=== PATIENT | male | born 1975 | race Caucasian/White ===

== ENCOUNTER 2020-02-02 09:49 | Emergency (ER) | payer OTHER ==
[2020-02-02] MEDS ORDERED: Sodium Chloride 0.9% 10 ML Syringe FLUSH PRN (10:12)
[2020-02-02] MEDS ORDERED: Ondansetron 4 MG/2 ML SDV IVPUSH ONE (10:12)
[2020-02-02] MEDS ORDERED: HYDROmorphone 0.5 MG/0.5 ML Syringe IVPUSH ONE ×3 (10:12→11:45)
--- NOTE | 2020-02-02 10:13 | EDM.PDOC ---
ED HPI GENERAL MEDICAL PROBLEM - General Chief Complaint: Laceration Stated Complaint: LEFT PALM LACERATION Time Seen by Provider: 02/02/20 10:15 Source of Information: Reports: Patient, RN Notes Reviewed - History of Present Illness INITIAL COMMENTS - FREE TEXT/NARRATIVE: 44-year-old male suffered laceration injury to left hand not too long ago. He was working with a piece of equipment at a [employer] shop in [place], some how his hand got "crushed" in the mechanics of the machine with resultant laceration to palmar aspect left hand. He states there was a lot of bleeding that has been controlled with pressure. Has had tetanus immunization within the past year. No apparent numbness, tingling or focal weakness of distal fingers. Left Hand Pain Score (Numeric/FACES): 10 - Related Data Allergies Allergy/AdvReac Type Severity Reaction Status Date / Time bee venom protein (honey bee) Allergy Swelling Verified 02/02/20 10:01 Home Meds: Home Meds Acetaminophen/HYDROcodone [[place] 325-5 MG] 1 tab PO Q6H PRN #14 tablet 02/02/20 [Rx] Cephalexin [Keflex] 500 mg PO QID #20 capsule 02/02/20 [Rx] Past Medical History - Past Health History Medical/Surgical History: Denies Medical/Surgical History Social & Family History - Tobacco Use Smoking Status *Q: Never Smoker - Caffeine Use Caffeine Use: Reports: Coffee - Recreational Drug Use Recreational Drug Use: No ED ROS GENERAL - Review of Systems Review Of Systems: See Below Constitutional: Reports: No Symptoms HEENT: Reports: No Symptoms Respiratory: Reports: No Symptoms Cardiovascular: Reports: No Symptoms GI/Abdominal: Reports: No Symptoms Musculoskeletal: Reports: Other (Large deep laceration palmar aspect left hand) Neurological: Denies: Numbness, Tingling, Weakness ED EXAM, SKIN/RASH Exam: See Below General Appearance: Alert, Anxious, Moderate Distress Head: Atraumatic Neck: Supple Respiratory/Chest: No Respiratory Distress Extremities: Normal Range of Motion (Patient is holding fingers somewhat in flexion because that is his most comfortable position. Can extend and he can flex all fingers), Other (Centimeter laceration mid palmar aspect of left hand on the ulnar side, moderately deep, no foreign material visible, no deep tendon structures visible) Neurological: No Motor/Sensory Deficits (There is no focal weakness of any of the fingers and distal sensation to touch is intact all fingers) ED SKIN PROCEDURES - Laceration/Wound Repair Left Hand Appearance: Linear, Irregular, Other (Oertli deep, no foreign material seen) Distal NVT: Neuro & Vascular Intact Anesthetic Type: Local Local Anesthesia - Lidocaine (Xylocaine): 1% Plain Exploration/Debridement/Repair: Wound Explored, Minimal Debridement Lac/Wound length In cm: 6 Suture Size: 3-0 # of Sutures: 16 Suture Type: Nylon Course - Vital Signs Last Recorded V/S: Last Vital Signs Temp 97.3 F 02/02/20 09:57 Pulse 69 02/02/20 09:57 Resp 16 02/02/20 09:57 BP 158/100 H 02/02/20 09:57 Pulse Ox 96 02/02/20 09:57 - Orders/Labs/Meds Orders: Active Orders 24 hr Category Date Time Status Peripheral IV Care [RC] . DIRECTED Care 02/02/20 10:13 Active Peripheral IV Insertion Adult [OM.PC] Stat Oth 02/02/20 10:12 Ordered Meds: Medications Discontinued Medications Generic Name Dose Route Start Last Admin Trade Name Freq PRN Reason Stop Dose Admin Hydromorphone HCl 0.5 mg 02/02/20 10:12 02/02/20 10:22 Dilaudid IVPUSH 02/02/20 10:13 0.5 mg ONETIME ONE Administration Hydromorphone HCl 0.5 mg 02/02/20 11:16 02/02/20 11:22 Dilaudid IVPUSH 02/02/20 11:17 0.5 mg ONETIME ONE Administration Hydromorphone HCl 0.5 mg 02/02/20 11:45 02/02/20 11:50 Dilaudid IVPUSH 02/02/20 11:46 0.5 mg ONETIME ONE Administration Cefazolin Sodium/Dextrose 2 gm 50 mls @ 100 mls/hr 02/02/20 11:55 02/02/20 12 :01 / Premix IV 02/02/20 12:24 100 mls/hr ONETIME ONE Administration Lidocaine HCl 50 ml 02/02/20 11:16 02/02/20 11:22 Xylocaine 1% INJECT 02/02/20 11:17 50 ml ONETIME ONE Administration Lorazepam 0.5 mg 02/02/20 11:45 02/02/20 11:50 Ativan IVPUSH 02/02/20 11:46 0.5 mg ONETIME ONE Administration Ondansetron HCl 4 mg 02/02/20 10:12 02/02/20 10:22 Zofran IVPUSH 02/02/20 10:13 4 mg ONETIME ONE Administration Sodium Chloride 10 ml 02/02/20 10:12 02/02/20 10:29 Saline Flush FLUSH 10 ml ASDIRECTED PRN Administration Keep Vein Open - Re-Assessments/Exams Free Text/Narrative Re-Assessment/Exam: 02/02/20 14:05 X-rays of hand, no acute fracture he was given Ancef 2 g IV while here in the ED , he was also given Dilaudid and Ativan IV. Patient tolerated procedure relatively well. Discharge instr. as documented. Departure - Departure Time of Disposition: 12:30 Disposition: Home, Self-Care 01 Condition: Fair Clinical Impression: Laceration of hand Qualifiers: Encounter type: initial encounter Foreign body presence: without foreign body Laterality: left Qualified Code(s): S61.412A - Laceration without foreign body of left hand, initial encounter - Discharge Information Prescriptions: Acetaminophen/HYDROcodone [[place] 325-5 MG] 1 tab PO Q6H PRN #14 tablet PRN Reason: Pain Cephalexin [Keflex] 500 mg PO QID #20 capsule Instructions: Laceration Care, Adult Referrals: PCP,None [Primary Care Provider] - Forms: ED Department Discharge, ED Return to Work/School Form Additional Instructions: laceration care instructions. Leave protective dressing on hand until your medical recheck on . Keep dressing dry and clean. Elevate hand as much as possible. I will every 6 to 8 hours for mild to moderate pain or hydrocodone if needed for more severe rohith codon at the same time. Do not drive when taking hydrocodone. Cephalexin antibiotic 500 mg 4 times daily. Have this rechecked at our [facility] medical clinic 2 days from now. Call [phone] for appointment. If for some reason unable to be seen at our [facility] medical clinic return to our ED for recheck. Sepsis Event Note - Evaluation Sepsis Screening Result: No Definite Risk - Focused Exam Vital Signs: Vital Signs Temp Pulse Resp BP Pulse Ox 02/02/20 09:57 97.3 F 69 16 158/100 H 96 Date Exam was Performed: 02/02/20 Time Exam was Performed: 13:58 - My Orders Last 24 Hours: My Active Orders 02/02/20 10:12 Peripheral IV Insertion Adult [OM.PC] Stat 02/02/20 10:13 Peripheral IV Care [RC] . DIRECTED - Assessment/Plan Last 24 Hours: My Active Orders 02/02/20 10:12 Peripheral IV Insertion Adult [OM.PC] Stat 02/02/20 10:13 Peripheral IV Care [RC] . DIRECTED
--- NOTE | 2020-02-02 10:43 | CR ---
Left hand: 4 views of the left hand were obtained. Comparison: No previous hand study. Study slightly limited due to finger flexion. Joint spaces are preserved. 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 No acute fracture or other acute abnormality is appreciated. Impression: 1. Findings as noted above. 2. No definite acute bony abnormality is appreciated on this somewhat limited study. Diagnostic code #2 This report was dictated in MDT
[2020-02-02] MEDS ORDERED: Lidocaine 1% 50 ML MDV INJECT ONE (11:16)
[2020-02-02] MEDS ORDERED: LORazepam 2 MG/ML SDV IVPUSH ONE (11:45)
[2020-02-02] MEDS ORDERED: ceFAZolin 2 GM in Premix Bag 1 BAG IV ONE (11:55)
== END 2020-02-02 12:40 | disposition home or self-care (01) ==
LOC: JD.ED 09:49
DX: S61.412A Laceration without foreign body of left hand, initial encounter (principal); Z91.030 Bee allergy status; W23.0XXA Caught, crushed, jammed, or pinched between moving objects, initial encounter; Y99.0 Civilian activity done for income or pay
CPT/HCPCS: 12002; 73130; 96365; 96375; 96376; 99283; J0690; J1170; J2001; J2060; J2405

== ENCOUNTER 2020-02-10 10:16 | Emergency (ER) | payer OTHER ==
--- NOTE | 2020-02-10 10:29 | EDM.PDOC ---
ED HPI GENERAL MEDICAL PROBLEM - General Chief Complaint: Upper Extremity Injury/Pain Stated Complaint: NUMBNESS IN LEFT HAND POST INJURY Time Seen by Provider: 02/10/20 10:29 - History of Present Illness INITIAL COMMENTS - FREE TEXT/NARRATIVE: 44-year-old male presents the emergency room with numbness in his left hand. Patient was seen here last week with a laceration over the distal palmar crease of his left hand following a crush type injury that he did at work. Since that time the patient has developed generalized numbness in his fingers especially the pinky ring and to a lesser degree the middle finger. This seems to involve both the dorsum and flexor surfaces of the fingers. The patient has been back to work and has been doing quite a bit of work with his hand. At night he has a hard time keeping the hand in a comfortable position. Patient is using ibuprofen for pain and discomfort and this does help some Left Hand Pain Score (Numeric/FACES): 9 - Related Data Allergies Allergy/AdvReac Type Severity Reaction Status Date / Time bee venom protein (honey bee) Allergy Swelling Verified 02/10/20 10:34 Home Meds: Home Meds Acetaminophen/HYDROcodone [[place] 325-5 MG] 1 tab PO Q6H PRN #14 tablet 02/02/20 [Rx] Cephalexin [Keflex] 500 mg PO QID #20 capsule 02/02/20 [Rx] Past Medical History - Past Health History Medical/Surgical History: Denies Medical/Surgical History Social & Family History - Caffeine Use Caffeine Use: Reports: Coffee Review of Systems - Review of Systems Review Of Systems: See Below Constitutional: Reports: No Symptoms Respiratory: Reports: No Symptoms Cardiovascular: Reports: No Symptoms GI/Abdominal: Reports: No Symptoms ED EXAM, GENERAL - Physical Exam Exam: See Below Exam Limited By: No Limitations General Appearance: Alert, No Apparent Distress Respiratory/Chest: No Respiratory Distress, Lungs Clear, Normal Breath Sounds Cardiovascular: Regular Rate, Rhythm, No Edema, No Murmur Extremities: Other (Patient is left hand shows intact vascular status good capillary refill. He has circumferential numbness involving the pinky ring and to a lesser degree the middle finger. 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 Vascularly he is intact. I have some concerns from reviewing his initial note immediately after the injury neurovascularly he was intact he had limited tendon function he could flex and extend his digits but this cannot be done fully thought to be secondary to the injury. At this time I cannot get him to fully extend in part due to the swelling he has and he cannot fully flex. I have informed the patient in absolutely no uncertain terms that this needs to be followed very closely until he has normal function established. Also he is at work and his employer is pushing him to do more with his left hand that he should be doing at this point with the swelling and there he needs to be doing limited duty with this hand. This will be included in his discharge instructions I believe in his best interest he should follow-up with the L&I doctor early next week. He is using ibuprofen he is advised to continue with this as well. Departure - Departure Time of Disposition: 11:32 Disposition: Home, Self-Care Clinical Impression: Crushing injury of left hand Laceration of hand Qualifiers: Encounter type: initial encounter Foreign body presence: without foreign body Laterality: left Qualified Code(s): S61.412A - Laceration without foreign body of left hand, initial encounter - Discharge Information Instructions: Laceration Care, Adult Referrals: PCP,None [Primary Care Provider] - Forms: ED Department Discharge, ED Return to Work/School Form Additional Instructions: Return to the emergency room with any questions problems or worsening symptoms. Keep your hand elevated as much as you can. I cannot emphasize this enough. 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 Watch for return of nerve function. Also your flexion and extension, the ability to move your fingers fully needs to be monitored until full function is established. Sepsis Event Note - Focused Exam Vital Signs: Vital Signs Temp Pulse Resp BP Pulse Ox 02/10/20 10:28 36.8 C 90 16 152/100 H 96 Date Exam was Performed: 02/10/20 Time Exam was Performed: 11:51
== END 2020-02-10 11:49 | disposition home or self-care (01) ==
LOC: JD.ED 10:16
DX: S67.22XA Crushing injury of left hand, initial encounter (principal); S61.412A Laceration without foreign body of left hand, initial encounter; X58.XXXA Exposure to other specified factors, initial encounter; Y99.0 Civilian activity done for income or pay
CPT/HCPCS: 99282; 99283

== ENCOUNTER 2020-02-15 15:09 | Emergency (ER) | payer OTHER | END 2020-02-15 15:32 | LOC: JD.ED 15:09 | CPT/HCPCS: 99281 ==

== ENCOUNTER 2020-02-21 14:08 | Emergency (ER) | payer OTHER ==
--- NOTE | 2020-02-21 14:26 | EDM.PDOC ---
ED HPI GENERAL MEDICAL PROBLEM - General Chief Complaint: Upper Extremity Injury/Pain Stated Complaint: LEFT HAND PAIN (ODOR FROM INJURY) Time Seen by Provider: 02/21/20 14:26 Source of Information: Reports: Patient History Limitations: Reports: No Limitations - History of Present Illness Onset: Gradual Duration: Day(s):, Getting Worse Location: Reports: Lower Extremity, Left Quality: Reports: Ache, Sharp, Throbbing Severity: Moderate Improves with: Reports: Cold Therapy Worsens with: Reports: None Associated Symptoms: Denies: Fever/Chills, Headaches, Loss of Appetite, Nausea/ Vomiting, Shortness of Breath 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 He initially injured his hand on February 01 while working at a [employer] store in [place]. Right hand dominant, left hand injury got pulled into the [employer] machine and sustained a laceration injury to the left palm distal palm near the distal areas of the palm near the third fourth and fifth digits. He has continually been unable to straighten his hand or flex it. Concerned that there might be infection he initially was on antibiotics. He was seen and evaluated by orthopedist here but told to follow- up again in a couple weeks. Patient is concerned that there might be infection. No red streaking he does have some tenderness in the wrist and forearm, no red streaks no fevers chills or sweats, does have some numbness and tingling to the fingers of the left hand.) Left Hand Pain Score (Numeric/FACES): 9 - Related Data Allergies Allergy/AdvReac Type Severity Reaction Status Date / Time bee venom protein (honey bee) Allergy Swelling Verified 02/10/20 10:34 Home Meds: Home Meds Acetaminophen/HYDROcodone [[place] 325-5 MG] 1 tab PO Q6H PRN #14 tablet 02/02/20 [Rx] Cephalexin [Keflex] 500 mg PO QID #20 capsule 02/02/20 [Rx] Naproxen [Naprosyn] 500 mg PO Q12HR #20 tab 02/21/20 [Rx] cephALEXin [Keflex] 500 mg PO Q8H #30 cap 02/21/20 [Rx] Past Medical History - Past Health History Medical/Surgical History: Denies Medical/Surgical History - Infectious Disease History Infectious Disease History: Reports: Chicken Pox Social & Family History - Family History Family Medical History: Noncontributory - Tobacco Use Smoking Status *Q: Current Every Day Smoker Years of Tobacco use: 6 Packs/Tins Daily: 0.5 - Caffeine Use Caffeine Use: Reports: Coffee Review of Systems - Review of Systems Review Of Systems: See Below Constitutional: Denies: Chills, Fever Mouth/Throat: Denies: Painful Swallowing Respiratory: Denies: Shortness of Breath, Cough Cardiovascular: Denies: Chest Pain GI/Abdominal: Denies: Abdominal Pain Musculoskeletal: Reports: Hand Pain Skin: Reports: No Symptoms Neurological: Reports: Paresthesia Psychiatric: Reports: No Symptoms (No red streaks or increasing swelling) ED EXAM, GENERAL - Physical Exam Exam: See Below Exam Limited By: No Limitations General Appearance: Alert, WD/WN Respiratory/Chest: No Respiratory Distress, Lungs Clear Cardiovascular: Normal Peripheral Pulses, Regular Rate, Rhythm Extremities: Normal Capillary Refill, Limited Range of Motion. No: Normal Range of Motion Neurological: Alert, Sensory/Motor Deficit Psychiatric: Normal Affect (Palm of the left hand shows open laceration is still present to the distal palm, unable to really straighten his hand or fingers or flex them on his own. Distal cap refill and sensation are normal however he does have paresthesias to the fingertips of the third and fourth and fifth fingers.) Skin Exam: Warm (No palm are swelling or sausage fingers, he does have tenderness to the flexor areas on the wrist and distal forearm. No red streaking or adenopathy noted.) Course - Vital Signs Last Recorded V/S: Last Vital Signs Temp 97.7 F 02/21/20 14:18 Pulse 77 02/21/20 14:18 Resp 16 02/21/20 14:18 BP 154/92 H 02/21/20 14:18 Pulse Ox 98 02/21/20 14:18 - Re-Assessments/Exams Free Text/Narrative Re-Assessment/Exam: 02/21/20 15:01 Concerning for infection, suspect he may have a tendon injury as well. Rule out very early tenosynovitis. We will get him to the hand surgeon tomorrow. Will call [facility] to see if and get him in soon as tomorrow. We will start him on Keflex 500 mg 3 times a day and Naprosyn. Matt wrap keep clean, may use topical antibiotics. Patient would like to hold off on any narcotic medications. Patient right-handed. Reviewed return precautions. Free Text/Narrative Re-Assessment/Exam: 02/21/20 15:[address] Wilman Penaloza on-call for orthopedist at [facility] [place] refer to [facility] hand specialist for tomorrow Departure - Departure Time of Disposition: 15:27 Disposition: Home, Self-Care 01 Condition: Fair Clinical Impression: Infected hand, Tendon injury, late effect Laceration of hand Qualifiers: Encounter type: initial encounter Foreign body presence: without foreign body Laterality: left Qualified Code(s): S61.412A - Laceration without foreign body of left hand, initial encounter - Discharge Information Prescriptions: Naproxen [Naprosyn] 500 mg PO Q12HR #20 tab cephALEXin [Keflex] 500 mg PO Q8H #30 cap Instructions: Wound Infection, [id number] Referrals: PCP,None [Primary Care Provider] - 1 Day (Dr. Wilman Penaloza [facility] [place] [address] [place] [address]) Forms: ED Department Discharge Additional Instructions: Follow-up at [facility] in the morning at age 43 [address] Wilman Penaloza. Avoid any food or fluids after midnight. Antibiotics as directed. Sepsis Event Note - Evaluation Sepsis Screening Result: No Definite Risk - Focused Exam Vital Signs: Vital Signs Temp Pulse Resp BP Pulse Ox 02/21/20 14:18 97.7 F 77 16 154/92 H 98 Date Exam was Performed: 02/21/20 Time Exam was Performed: 15:06
== END 2020-02-21 15:42 | disposition home or self-care (01) ==
LOC: JD.ED 14:08
DX: S61.412A Laceration without foreign body of left hand, initial encounter (principal); L08.9 Local infection of the skin and subcutaneous tissue, unspecified; F17.210 Nicotine dependence, cigarettes, uncomplicated; Z91.030 Bee allergy status; W23.0XXA Caught, crushed, jammed, or pinched between moving objects, initial encounter
CPT/HCPCS: 99283